=== PATIENT | male | born 1940 | race African-American/Black ===

== ENCOUNTER 2018-06-12 07:00 | Emergency (ER) | payer MEDICARE, OTHER ==
[~2018-06-12] VITALS: Ht 188 cm; Wt 90.7 kg
--- NOTE | 2018-06-12 07:07 | Emergency Room Report ---
History of Present Illness General Source: Patient Present Illness HPI Patient is a 77-year-old male brought in by EMS after increased bizarre behavior. Patient was reportedly having increased bizarre behavior. He had prior history of hypertension. Patient reports having some slight leg swelling for approximately 2 weeks. He reportedly had been having increased urinary frequency and takes diuretics. [facility] Patient was noted to have no prior history of dementia. Patient was noted to be more confused at home per family members. Patient was noted to have increased urinary discomfort. patient reports of a prior history of chronic prostate disease. Allergies: Coded Allergies: ASPIRIN (Verified Allergy, Unknown, 02/21/15) Patient History Past Medical History: see triage record Past Surgical History: unable to obtain Pertinent Family History: unable to obtain Reviewed Nursing Documentation: PMH: Agreed; PSxH: Agreed Nursing Documentation-PMH Hx Cardiac Problems: Yes - heart murmur Hx Hypertension: Yes Hx Diabetes: Yes Review of Systems All Other Systems: negative except mentioned in HPI Physical Exam Sp02 EP Interpretation: reviewed, normal General Appearance: normal inspection, well appearing, no apparent distress, alert, GCS 15, obese, Chronically Ill Head: atraumatic ENT: normal ENT inspection, hearing grossly normal, normal voice Neck: normal inspection, full range of motion, supple, no bony tend Respiratory: normal inspection, lungs clear, normal breath sounds, no respiratory distress, no retraction, no wheezing Cardiovascular #1: regular rate, rhythm, edema Gastrointestinal: normal inspection, normal bowel sounds, non tender, soft, no guarding, no hernia Genitourinary: no CVA tenderness Musculoskeletal: normal inspection, back normal, normal range of motion Neurologic: normal inspection, alert, responsive, 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 Differential diagnosis include was not limited to CVA, urinary tract infection, alcohol withdrawal, dementia among others. Because of complexity of patient's case laboratory testing and imaging studies were ordered.Patient has apparently been having some symptoms consistent with urinary tract infection. CT imaging of the head read by radiology showed multiple old lacunar infarct patient was noted to have been at baseline mental status per his son. Patient was offered admission but he declined. Patient appears to be stable for close outpatient follow-up. Patient states he will seek treatment at the [facility]. At the time of discharge patient was awake alert oriented x3. He appears had capable of self-care. Labs Test 06/12/18 07:40 06/12/18 08:59 White Blood Count 3.7 K/UL (4.8-10.8) Red Blood Count 4.83 M/UL (4.70-6.10) Hemoglobin 13.7 G/DL (14.2-18.0) Hematocrit 43.6 % (42.0-52.0) Mean Corpuscular Volume 90 FL (80-99) Mean Corpuscular Hemoglobin 28.4 PG (27.0-31.0) Mean Corpuscular Hemoglobin Concent 31.4 G/DL (32.0-36.0) Red Cell Distribution Width 13.0 % (11.6-14.8) Platelet Count 102 K/UL (150-450) Mean Platelet Volume 7.0 FL (6.5-10.1) Neutrophils (%) (Auto) 67.4 % (45.0-75.0) Lymphocytes (%) (Auto) 25.3 % (20.0-45.0) Monocytes (%) (Auto) 5.3 % (1.0-10.0) Eosinophils (%) (Auto) 1.5 % (0.0-3.0) Basophils (%) (Auto) 0.6 % (0.0-2.0) Sodium Level 140 MMOL/L (136-145) Potassium Level 4.4 MMOL/L (3.5-5.1) Chloride Level 106 MMOL/L (98-107) Carbon Dioxide Level 28 MMOL/L (21-32) Anion Gap 6 mmol/L (5-15) Blood Urea Nitrogen 24 mg/dL (7-18) Creatinine 1.9 MG/DL (0.55-1.30) Estimat Glomerular Filtration Rate mL/min (>60) Glucose Level 116 MG/DL (74-106) Calcium Level 9.2 MG/DL (8.5-10.1) Total Bilirubin 0.6 MG/DL (0.2-1.0) Aspartate Amino Transf (AST/SGOT) 24 U/L (15-37) Alanine Aminotransferase (ALT/SGPT) 26 U/L (12-78) Alkaline Phosphatase 24 U/L (46-116) Troponin I 0.000 ng/mL (0.000-0.056) Pro-B-Type Natriuretic Peptide 154 pg/mL (0-125) Total Protein 7.2 G/DL (6.4-8.2) Albumin 3.8 G/DL (3.4-5.0) Globulin 3.4 g/dL Albumin/Globulin Ratio 1.1 (1.0-2.7) Thyroid Stimulating Hormone (TSH) 0.472 uiU/mL (0.358-3.740) Serum Alcohol < 3 mg/dL Urine Color Yellow Urine Appearance Clear Urine pH 6.5 (4.5-8.0) Urine Specific [place] 1.015 (1.005-1.035) Urine Protein Negative (NEGATIVE) Urine Glucose (UA) Negative (NEGATIVE) Urine Ketones Negative (NEGATIVE) Urine Blood Negative (NEGATIVE) Urine Nitrite Negative (NEGATIVE) Urine Bilirubin Negative (NEGATIVE) Urine Urobilinogen 1 MG/DL (0.0-1.0) Urine Leukocyte Esterase 1+ (NEGATIVE) Urine RBC 0 /HPF (0 - 0) Urine WBC 0-2 /HPF (0 - 0) Urine Squamous Epithelial Cells Occasional /LPF Urine Bacteria Occasional /HPF (NONE) Urine Opiates Screen Negative (NEGATIVE) Urine Barbiturates Screen Negative (NEGATIVE) Phencyclidine (PCP) Screen Negative (NEGATIVE) Urine Amphetamines Screen Negative (NEGATIVE) Urine Benzodiazepines Screen Negative (NEGATIVE) Urine Cocaine Screen Negative (NEGATIVE) Urine Marijuana (THC) Screen Negative (NEGATIVE) EKG Diagnostic Results Rate: normal - 70 Rhythm: NSR ST Segments: no acute changes Status: improved Disposition: HOME, SELF-CARE Condition: Stable Miki Zeng MD Jun 12, 2018 07:07
[2018-06-12 07:20] VITALS: BP 145/85
--- NOTE | 2018-06-12 07:25 | NUR ---
ED Nurse Note: patient was brought by RA from home, per patient's son anil at 6:30 patient was not able to talk and was really confused, son called 911. by the time when paramedics arived he was able have conversation. AAO x 2, skin is dry, intact, warn to touch. patient have nonlabored breathing, no pain. patient connected to the monitor, will continue to monitor.
--- NOTE | 2018-06-12 07:35 | NUR ---
ED Nurse Note: labs sent, patient went doun for CT
--- NOTE | 2018-06-12 07:58 | NUR ---
ED Nurse Note: patient is back, no acute disstress, VSS at this time
[2018-06-12 08:01] LABS: BASOPHILS % (AUTO) 0.6 % (0.0-2.0); EOSINOPHILS % (AUTO) 1.5 % (0.0-3.0); HEMATOCRIT 43.6 % (42.0-52.0); HEMOGLOBIN 13.7 G/DL (14.2-18.0); LYMPHOCYTES % (AUTO) 25.3 % (20.0-45.0); MEAN CORPUSCULAR VOLUME 90 FL (80-99); MONOCYTES % (AUTO) 5.3 % (1.0-10.0); NEUTROPHILS % (AUTO) 67.4 % (45.0-75.0); PLATELET COUNT 102 K/UL (150-450); RED BLOOD COUNT 4.83 M/UL (4.70-6.10); WHITE BLOOD COUNT 3.7 K/UL (4.8-10.8)
[2018-06-12 08:12] LABS: ANION GAP 6 mmol/L (5-15); BLOOD UREA NITROGEN 24 mg/dL (7-18); CALCIUM 9.2 MG/DL (8.5-10.1); CARBON DIOXIDE 28 MMOL/L (21-32); CHLORIDE 106 MMOL/L (98-107); CREATININE 1.9 MG/DL (0.55-1.30); POTASSIUM 4.4 MMOL/L (3.5-5.1); SODIUM 140 MMOL/L (136-145)
[2018-06-12 08:27] VITALS: BP 151/82
[2018-06-12 08:35] LABS: ALANINE AMINOTRANSFERASE 26 U/L (12-78); ALBUMIN 3.8 G/DL (3.4-5.0); ALBUMIN/GLOBULIN RATIO 1.1 (1.0-2.7); ALKALINE PHOSPHATASE 24 U/L (46-116); ASPARTATE AMINO TRANSFERASE 24 U/L (15-37); BILIRUBIN,TOTAL 0.6 MG/DL (0.2-1.0)
--- NOTE | 2018-06-12 08:35 | Diagnostic Imaging Report ---
Indications: Altered mental status Technique: Spiral acquisitions obtained through the brain. Angled axial and coronal 5 x 5 mm slices were reconstructed. Total dose length product 1369.05 mGycm. CTDI vol(s) 70.38 mGy. Dose reduction achieved using automated exposure control Comparison: None. Findings: There is age-related enlargement of the ventricles and extra-axial CSF spaces. There is periventricular deep white matter low-attenuation, consistent with chronic microvascular ischemic change. Vega-white differentiation is normal. Old tiny lacunar infarcts are seen in the bilateral basal ganglia. No acute intrarenal hemorrhage or edema, mass effect, nor midline shift. The visualized orbits and sinuses are unremarkable. The mastoids are clear. The calvarium is intact Impression: Chronic and age-related changes. Negative for acute intracranial bleed or mass effect The CT scanner at [facility] is accredited by the [employer] and the scans are performed using protocols designed to limit radiation exposure to as low as reasonably achievable to attain images of sufficient resolution adequate for diagnostic evaluation.
[2018-06-12 09:25] LABS: APPEARANCE,URINE CLEAR; BILIRUBIN, URINE NEGATIVE (NEGATIVE); GLUCOSE, URINE (UA) NEGATIVE (NEGATIVE); KETONES,URINE NEGATIVE (NEGATIVE); LEUKOCYTE ESTERASE ,URINE 1+ (NEGATIVE); NITRITE,URINE NEGATIVE (NEGATIVE); PH,URINE 6.5 (4.5-8.0); PROTEIN,URINE NEGATIVE (NEGATIVE); UROBILINOGEN,URINE 1 MG/DL (0.0-1.0)
[2018-06-12 09:34] LABS: COLOR,URINE YELLOW
[2018-06-12] MEDS ORDERED: TERAZOSIN HCL1 MG ORAL (10:48)
[2018-06-12 11:00] VITALS: BP 145/80
--- NOTE | 2018-06-12 11:00 | NUR ---
ED Nurse Note: patient was DC home, VSS at this time, ambulatory with minimum asisstance. AAO x 4. all belongings were given to the pt. arm band and IV were removed.
== END 2018-06-12 11:00 | disposition home or self-care (01) ==
LOC: EDUNIT# 07:00 → EDBD 07:00 → EMR 07:49
DX: I63.81 Other cerebral infarction due to occlusion or stenosis of small artery (principal); N40.1 Benign prostatic hyperplasia with lower urinary tract symptoms; R35.0 Frequency of micturition; I10 Essential (primary) hypertension; E11.9 Type 2 diabetes mellitus without complications; Z88.6 Allergy status to analgesic agent
CPT/HCPCS: 36415; 70450; 80053; 80307; 81001; 82962; 83880; 84443; 84484; 85025; 93005; 96374; 99284; G0480; J1940; 80329